=== PATIENT | male | born 1995 | race Caucasian/White ===

== ENCOUNTER 2021-02-14 09:30 | Emergency (ER) | payer SELFPAY ==
[~2021-02-14 09:30] MED LIST: BACTRIM DS TAB1 EACH PO; BACTROBAN OINT22 GM EXT; KEFLEX CAP 500500 MG PO
[2021-02-14 10:05] LABS: HEMOGLOBIN 17.1 gm/dl (14.0-17.5); RED BLOOD COUNT 5.47 M/UL (4.20-5.50); WHITE BLOOD COUNT 9.7 K/UL (4.5-11.0)
[2021-02-14] MEDS ORDERED: PHENERGAN 12.12.5 M1 PO (11:32)
[2021-02-14] MEDS ORDERED: PERCOCET 5-3251 EACH PO (11:32)
[2021-02-14] MEDS ORDERED: ZOFRAN ODT 4 MG4 MG PO (11:32)
== END 2021-02-14 15:37 | disposition home or self-care (01) ==
LOC: ER1 09:30
PROVIDERS: Family Medicine
DX: N13.2 Hydronephrosis with renal and ureteral calculous obstruction (principal); N17.9 Acute kidney failure, unspecified; E86.0 Dehydration; F17.200 Nicotine dependence, unspecified, uncomplicated; Z91.041 Radiographic dye allergy status
CPT/HCPCS: 80053; 81001; 83690; 85025; 96374; 96375; 99284; J2270; J2405; J2550; J7030